=== PATIENT | male | born 1995 | race Caucasian/White ===

== ENCOUNTER 2021-02-04 19:18 | Emergency (ER) | payer SELFPAY ==
[2021-02-04] MEDS ORDERED: Lidocaine 1% PF 5 ML VIAL ONE ×2 (19:53→20:03)
[2021-02-04] MEDS ORDERED: Lidocaine 1% (PF) 30 ML VIAL ONE (19:55)
== END 2021-02-04 20:40 | disposition home or self-care (01) ==
LOC: ERS 19:18
DX: S71.112A Laceration without foreign body, left thigh, initial encounter (principal); W26.0XXA Contact with knife, initial encounter
CPT/HCPCS: 12002; J2001

== ENCOUNTER 2021-02-17 18:32 | Emergency (ER) | payer SELFPAY | END 2021-02-17 19:04 | disposition home or self-care (01) | LOC: ERS 18:32 | DX: S71.112D Laceration without foreign body, left thigh, subsequent encounter (principal); X58.XXXD Exposure to other specified factors, subsequent encounter ==